=== PATIENT | male | born 1940 | race Caucasian/White ===

== ENCOUNTER 2017-10-21 15:45 | Outpatient (CLI) | payer MEDICARE, OTHER | END 2017-10-21 15:46 | disposition home or self-care (01) | LOC: SC 15:45 | PROVIDERS: ATTEND Nurse Practitioner Family | DX: G47.33 Obstructive sleep apnea (adult) (pediatric) (principal); I48.91 Unspecified atrial fibrillation; Z91.19 Patient's noncompliance with other medical treatment and regimen | CPT/HCPCS: 99214; G0463; 99212 ==

== ENCOUNTER 2017-12-23 14:57 | Outpatient (CLI) | payer MEDICARE, OTHER | END 2017-12-23 14:58 | disposition home or self-care (01) | LOC: SC 14:57 | PROVIDERS: ATTEND Nurse Practitioner Family | DX: G47.33 Obstructive sleep apnea (adult) (pediatric) (principal); R53.83 Other fatigue | CPT/HCPCS: 99214; G0463; 99212 ==

== ENCOUNTER 2018-09-22 08:44 | Outpatient (CLI) | payer MEDICARE, OTHER | END 2018-09-22 08:45 | disposition home or self-care (01) | LOC: SC 08:44 | PROVIDERS: ATTEND Nurse Practitioner Family | DX: G47.33 Obstructive sleep apnea (adult) (pediatric) (principal) | CPT/HCPCS: 99214; G0463; 99212 ==

== ENCOUNTER 2019-01-10 13:04 | Outpatient (CLI) | payer MEDICARE, OTHER ==
[2019-01-10 14:24] VITALS: BP 140/60
--- NOTE | 2019-01-10 14:24 | SLEEP CARE CONSULTATION ---
Information from patient questionnaire entered by Jesi Jordan. I have reviewed and concur with the information entered by Jesi Jordan. This document represents the service I personally performed and the decisions made by me, Katie Neri, RN, MSN, [employer]. History of Present Illness Previous diagnosis: Moderate, Obstructive Sleep Apnea-Hypopnea Syndrome AHI: 22.4 Reason for CPAP/BiPAP follow up: other (pressure change & two month follow up) Equipment type: CPAP Equipment obtained from: [employer] (He has been having difficulty getting supplies.) Mask style: Full face Mask brand: Respironics Backup mask available: No Last cushion change: never since set up Prior sleep studies: Yes Year and Where: 2014 [facility] additional information: Changes since last seen is aortic valve replacement November 29, 2018. He is to go to cardiac rehab but has not started yet. He has noted improved energy overall since but still afternoon fatigue CPAP Compliance Data - Data Reviewed with Patient Average duration of nightly device use: 7h 28m Compliance rate %: 91.7 Current pressure setting (cmH2O): 10-11 Heated hose settin Average residual AHI: 3.7 Average large leak: 41 minutes Subjective Missed days of use due to: reports: other (runny nose after used the CPAP after cleaning with clorox solution. ) Patient concerns: reports: air blowing in eyes (most nights and waking him up about 2-3 times a night), mask leak noise, dry mouth, nose, throat (about half the time ). denies: aerophagia, mask discomfort, condensation in mask/hose, nasal congestion, epistaxis Observed to snore while using device: No On therapy, patient: reports: sleeping better, awakening more refreshed, being more awake and alert during the day, more rested overall (but still mid afternoon fatigue with regular wake time ) Initial [place] Sleepiness Scale score: 12 Current [place] Sleepiness Scale score: 12 Allergies and Home Medications Known drug allergies: No Home medication list reviewed: Yes Allergy and home medication list: Medication Name (generic/name brand) Strength & Dosage Losartan Potassium 100mg tab one daily Finasteride 5mg tab one daily Xarelto 20mg tab one daily Doxazosin Mesylate 1mg tab one twice daily Review of Systems Cardiovascular: reports: high blood pressure, palpitations, irregular heart rate or pulse Gastrointestinal: reports: diarrhea (occasional ). denies: heartburn (resolved with aortic valve replacemnt ) Urinary: reports: incontinence, urgency Ear/Nose/Throat: reports: dry mouth/throat, wisdom teeth removed Musculoskeletal: reports: joint pain Physical Exam Blood Pressure: 140/60 Cuff size: long Heart Rate: 69 O2 Saturation: 98 Weight (kg): 95.527 kg Impression and Plan 1. Obstructive Sleep Apnea-Hypopnea Syndrome, moderate apnea and severe supine, with good treatment compliance and good apnea control. The new pressure has resolved residual AHI to normal. On CPAP therapy, the patient has better sleep quality and is more rested overall but has mid afternoon fatigue. In regard to his fatigue, I discussed possibility of needing more sleep vs needing cardiac rehab and to follow up with PCP if persists. For his supply concerns, I will have him discuss transfer options with my unit coordinator and I will make a DWO prescription to his choice. Once transferred to a new DME, he is to update all supplies. His mask leaks are probably due to wear down of mask. A list of supply replacement given for reference. For his oral dryness, he is advised to increase humidity as shown on sample device and to add heated hose only if condensation. He was also advised not to use bleach any more to clean equipment. Instead he is to use a liquid dish soap or baby shampoo and rinse well. A vinegar solution can be used if needed for reservoir to clear mineral deposits but again, it is to be rinsed well. Since his apnea is worse supine, he is to avoid supine sleep if unable to use CPAP. Patient's apnea severity and rationale for treatment to reduce apnea, improve sleep quality and reduce cardiovascular and cerebrovascular events was reviewed. I also reviewed the benefit of consistent device use of CPAP for hypertension, cardiac disease, arrhythmia. * Continue autoCPAP pressure at 10-11 cmH2O * Implement new methods for cleaning equipment and regularly. * Transfer to new DME * Update all supplies * Notify me if snoring with mask or feeling that the pressure is too much or too little * Attempt to lose weight * Follow up with PCP if persistent fatigue. * Return for follow up in 6 months, or sooner if concerns arise I spent 100% of this 32 minute visit face to face with the patient with greater than 50% of this was spent time counseling the patient and coordination of care.
== END 2019-01-10 13:05 | disposition home or self-care (01) ==
LOC: SC 13:04
PROVIDERS: ATTEND Nurse Practitioner Family
DX: G47.33 Obstructive sleep apnea (adult) (pediatric) (principal)
CPT/HCPCS: 99214; G0463; 99212

== ENCOUNTER 2020-01-26 11:33 | Outpatient (CLI) | payer MEDICARE, OTHER ==
--- NOTE | 2020-01-26 13:27 | SLEEP CARE CONSULTATION ---
Information from patient questionnaire entered by Any Simmons. I have reviewed and concur with the information entered by Any Simmons. This document represents the service I personally performed and the decisions made by , Sana Quinones ARNP. History of Present Illness Service Date and Time: 01/26/2020 1133 Previous diagnosis: Moderate, Obstructive Sleep Apnea-Hypopnea Syndrome AHI: 22.4 (in 2014) Reason for follow up: annual (last seen 2019) Equipment type: CPAP Equipment obtained from: [employer] (has not gotten supplies for a over year) Mask style: Full face Backup mask available: No (will need to keep mask at next change out) Last cushion change: over a year [facility]: Yes [facility] Pol[facility]omn[facility] HPI additional information: LEONOR DUKE was diagnosed to have moderate, AHI 22.4, obstructive sleep apnea- hypopnea syndrome and returned today for CPAP therapy annual follow-up. He missed the follow up letters and it has been over a year since last follow up visit. He was using [employer] for supplies but has not been able to get supplies and then just stopped trying to get them. Sleep Study - Results [facility]: Yes [facility] Compliance Data - Data Reviewed with Patient Average duration of nightly device use: 7.1 Compliance rate %: 77.2 (180 days ending 04/03/19) Current pressure setting (cmH2O): 10-11 Humidity settin Average residual AHI: 3.2 Average large leak: 19 min 18 sec Subjective Patient concerns: reports: mask leak noise (only if mask not adjusted right), dry mouth, nose, throat (dry mouth, little bit). denies: aerophagia, mask disco mfort, air blowing in eyes, condensation in mask/hose, nasal congestion, epistaxis, other Observed to snore while using device: No Current pressure setting perceived as: comfortable On therapy, patient: reports: sleeping better, awakening more refreshed, being more awake and alert during the day, more rested overall. denies: drowsiness while driving Initial [place] Sleepiness Scale score: 12 (in 2014) Current [place] Sleepiness Scale score: 11 Allergies and Home Medications Drug allergies reviewed: Yes (NKDA) Home medication list reviewed: Yes (amlodipine 1/2 dose, added medication for enlarged prostate) Review of Systems Review of systems same as previous: No (Aortic valve replacement November 29 2018) Cardiovascular: reports: high blood pressure, irregular heart rate or pulse (atrial fibrillation) Urinary: reports: other (enlarged prostate) Neurological: denies: headaches Ear/Nose/Throat: reports: nasal congestion, dry mouth/throat. denies: sinus problems, nose bleeds Physical Exam Heart Rate: 74 O2 Saturation: 99 Height: 5 ft 11 in Weight: 207 lb Body Mass Index: 28.8 BMI Classification: Overweight Impression and Plan 1. Obstructive Sleep Apnea-Hypopnea Syndrome, moderate, with good treatment compliance and good apnea control from numbers before April 2019. On CPAP therapy, there is improved sleep quality and feels more rested overall. Our information only goes back to April 2019, needs updated compliance information. Patient states his card was not completely inserted so it may not have all the information downloaded on it. He was instructed to put back in machine so information can be downloaded to card and bring it back into office later today or tomorrow so we may verify his compliance. He has not issues except need for new supplies. His headgear has broken and he has not had new cushions in over a year. We will transfer his DME since he was not happy with [facility]'s service. Patient's apnea severity and rationale for treatment to reduce apnea, improve sleep quality and reduce cardiovascular and cerebrovascular events was reviewed. I also reviewed the benefit of consistent device use of CPAP for hypertension and arrhythmia. Continue auto CPAP pressure at 10-11 cm H2O. Bring in reloaded compliance information chip for verification of information. Notify me if snoring with the mask or feeling that the pressure is too much or too little. Attempt to lose weight. Transfer DME and update supplies Return for follow-up in 1-2 months if unable to obtain compliance information sooner or in 1 year for annual if able to obtain information. He may return anytime if concerns arise. Visit Type: In Office Time Spent with Patient (minutes): 22 Provider Statement: I spent 100% of the Face to Face Visit with the patient with greater than 50% spent counseling the patient and coordination of care.
== END 2020-01-26 11:34 | disposition home or self-care (01) ==
LOC: SC 11:33
PROVIDERS: ATTEND Nurse Practitioner Family
DX: G47.33 Obstructive sleep apnea (adult) (pediatric) (principal); E66.3 Overweight; Z68.28 Body mass index [BMI] 28.0-28.9, adult
CPT/HCPCS: 99213; G0463; 99212

== ENCOUNTER 2021-01-11 09:03 | Outpatient (CLI) | payer MEDICARE, OTHER ==
--- NOTE | 2021-01-11 09:33 | SLEEP CARE CONSULTATION ---
Information from patient questionnaire entered by Any Simmons. I have reviewed and concur with the information entered by Any Simmons. This document represents the service I personally performed and the decisions made by , Sana Quinones ARNP. History of Present Illness Service Date and Time: 01/11/2021 0903 Previous diagnosis: Moderate, Obstructive Sleep Apnea-Hypopnea Syndrome AHI: 22.4 (in 2014) Reason for follow up: first compliance after device update Equipment type: CPAP Equipment obtained from: [employer] (getting supplies as needed) Mask style: Full face Backup mask available: Yes (other) [facility]: Yes [facility] additional information: LEONOR DUKE was diagnosed to have moderate, AHI 22.4, obstructive sleep apnea- hypopnea syndrome and returned today for CPAP therapy first compliance after updating device follow-up. Sleep Study - Results Prior sleep studies: Yes Year and Where: 2014 [email or web address] CPAP Compliance Data - Data Reviewed with Patient Average duration of nightly device use: 7 hr 27 min Compliance rate %: 95 (180 days) Current pressure setting (cmH2O): 10-11 Humidity settin Heated hose settin Average residual AHI: 3.2 Average large leak: 2 min 53 sec Subjective Patient concerns: reports: aerophagia (sometimes), mask discomfort, air blowing in eyes, mask leak noise, dry mouth, nose, throat (not new, not very much but). denies: condensation in mask/hose, nasal congestion, epistaxis Observed to snore while using device: No Current pressure setting perceived as: too low On therapy, patient: reports: sleeping better, awakening more refreshed, being more awake and alert during the day, more rested overall. denies: drowsiness while driving Initial [place] Sleepiness Scale score: 12 (in 2015) Current [place] Sleepiness Scale score: 16 Allergies and Home Medications Home medication list reviewed: Yes (no changes) Review of Systems Review of systems same as previous: Yes (no changes) Physical Exam Heart Rate: 81 O2 Saturation: 96 Height: 5 ft 11 in Weight: 209 lb Body Mass Index: 29.1 BMI Classification: Overweight Impression and Plan 1. Obstructive Sleep Apnea-Hypopnea Syndrome, moderate, with good treatment compliance and good apnea control. On CPAP therapy, the patient has better sleep quality and is more rested overall. Patient has been getting some air leaking on face and mask leak noises with current full face mask. He would like to try a different style of mask. I will write for a mask refitting. He states he gets occasional morning bloating feeling but it is not bad. He feels the pressure is too low. The patients pressure will be changed to autoCPAP 10-12 cmH20 to reduce air hunger. Patient advised to contact me if pressure change is uncomfortable so that it can be adjusted. Goals for apnea control discussed. Patient's apnea severity and rationale for treatment to reduce apnea, improve sleep quality and reduce cardiovascular and cerebrovascular events was reviewed. I also reviewed the benefit of consistent device use of CPAP for hypertension and arrhythmia. He was encouraged to try to lose weight. * Change auto CPAP pressure to 10-12 cmH2O * Notify me if snoring with mask or feeling that the pressure is too much or too little * Attempt to lose weight * Call this office if any problems using CPAP * Return for follow up in 1 year, or sooner if concerns arise Counseling Topics: Weight loss health impact Time Spent with Patient (minutes): 21
== END 2021-01-11 09:04 | disposition home or self-care (01) ==
LOC: SC 09:03
PROVIDERS: ATTEND Nurse Practitioner Family
DX: G47.33 Obstructive sleep apnea (adult) (pediatric) (principal)
CPT/HCPCS: 99213; G0463; 99212

== ENCOUNTER 2022-11-21 01:08 | Emergency (ER) | payer MEDICARE, OTHER ==
--- OUTSIDE RECORDS SUMMARY | 2022-11-21 01:22 | EXTERNAL MEDICAL SUMMARY RPT | Continuity of Care Document ---
Author Name Unknown Address [address] [place] [address] Phone Organization [place] Address [address] [place] [id number] Phone Problems date description facility 2022-10-09 13:45 Essential (primary) [facility] 2022-10-09 13:50 Essential (primary) [facility] 2022-11-18 12:11 Presence of prosthetic heart [facility] 2022-11-18 15:57 Presence of prosthetic heart [facility] Results/Labs test date author facility value unit interpretation Result panel 1 (unknown) (no date) (unknown) (unknown) > 60 ml/min (unknown ) (unknown) (no date) (unknown) (unknown) > 60 ml/min (unknown ) (unknown) (no date) (unknown) (unknown) 0.82 mg/dl (unknown ) (unknown) (no date) (unknown) (unknown) 100 mg/dl (unknown ) (unknown) (no date) (unknown) (unknown) 100 mg/dl (unknown ) (unknown) (no date) (unknown) (unknown) 100 mmol/l (unknown ) (unknown) (no date) (unknown) (unknown) 138 mmol/l (unknown ) (unknown) (no date) (unknown) (unknown) 14 mg/dl (unknown ) (unknown) (no date) (unknown) (unknown) 17.1 (units unknown) (unknown) (unknown) (no date) (unknown) (unknown) 3.6 mmol/l (unknown ) (unknown) (no date) (unknown) (unknown) 32 mmol/l (unknown ) (unknown) (no date) (unknown) (unknown) 8.8 mg/dl (unknown ) Result panel 2 (unknown) (no date) (unknown) (unknown) 0 /ul (unknown ) (unknown) (no date) (unknown) (unknown) 0.8 % (unknown ) (unknown) (no date) (unknown) (unknown) 13.6 % (unknown ) (unknown) (no date) (unknown) (unknown) 1300 /ul (unknown ) (unknown) (no date) (unknown) (unknown) 14.3 g/dl (unknown ) (unknown) (no date) (unknown) (unknown) 200 /ul (unknown ) (unknown) (no date) (unknown) (unknown) 201 x10 3/ul (unknow n) (unknown) (no date) (unknown) (unknown) 21.6 % (unknown ) (unknown) (no date) (unknown) (unknown) 3.7 % (unknown ) (unknown) (no date) (unknown) (unknown) 30.3 pg (unknown ) (unknown) (no date) (unknown) (unknown) 34.4 % (unknown ) (unknown) (no date) (unknown) (unknown) 3800 /ul (unknown ) (unknown) (no date) (unknown) (unknown) 4.73 x10 6/ul (unknow n) (unknown) (no date) (unknown) (unknown) 41.7 % (unknown ) (unknown) (no date) (unknown) (unknown) 5.9 x10 3/ul (unknow n) (unknown) (no date) (unknown) (unknown) 500 /ul (unknown ) (unknown) (no date) (unknown) (unknown) 64.7 % (unknown ) (unknown) (no date) (unknown) (unknown) 88.3 fl (unknown ) (unknown) (no date) (unknown) (unknown) 9.2 % (unknown ) Result panel 3 (unknown) (no date) (unknown) (unknown) (no value) (units unknown) (unknown) (unknown) (no date) (unknown) (unknown) +---------+ 29 9-1300 +--------- (units unknown) (unknown) (unknown) (no date) (unknown) (unknown) +---------+ Ho spital +--------- (units unknown) (unknown) (unknown) (no date) (unknown) (unknown) + ------- (units unknown) (unknown) (unknown) (no date) (unknown) (unknown) [address] (units unknown) (unknown) (unknown) (no date) (unknown) (unknown) 11/18/22 (units unknown) (unknown) (unknown) (no date) (unknown) (unknown) 1) Normal left ventricular size, wall motion, and systolic function (EF 55 (units unknown) (unknown) (unknown) (no date) (unknown) (unknown) [address] [place] (un its unknown) (unknown) (unknown) (no date) (unknown) (unknown) 2) Mildly enla rged right ventricle with low normal function. (units unknown) (unknown) (unknown) (no date) (unknown) (unknown) 3) There is a bioprosthetic aortic valve that is well-seated and opens well. (units unknown) (unknown) (unknown) (no date) (unknown) (unknown) 4) There is mi ld to moderate tricuspid regurgitation. (units unknown) (unknown) (unknown) (no date) (unknown) (unknown) 5) The right ventricular systolic pressure is estimated to be at least 37 mmHg (units unknown) (unknown) (unknown) (no date) (unknown) (unknown) 6) Compared to the Echo done 01/11/2020, no significant change. (units unknown) (unknown) (unknown) (no date) (unknown) (unknown) 60%). (units unknown) (unknown) (unknown) (no date) (unknown) (unknown) : : [address] : : (units unknown) (unknown) (unknown) (no date) (unknown) (unknown) : : [id number] : : (units unknown) (unknown) (unknown) (no date) (unknown) (unknown) : : TOMMY Castro : : (units unknown) (unknown) (unknown) (no date) (unknown) (unknown) : : Phone: [phone] : : (units unknown) (unknown) (unknown) (no date) (unknown) (unknown) : Gender: Male BSA: 2.2 m2 : (units unknown) (unknown) (unknown) (no date) (unknown) (unknown) :JOCY Perfor med By: Ewa Cr : (units unknown) (unknown) (unknown) (no date) (unknown) (unknown) :: [birth year] Age: 82 yrs BP: 153/87 mmHg: (units unknown) (unknown) (unknown) (no date) (unknown) (unknown) :[facility] ReadingLocation: Weight: 210 lb : (units unknown) (unknown) (unknown) (no date) (unknown) (unknown) :Name: LEONOR SAHU Study Date: 11/18/2022 Height: 72 in : (units unknown) (unknown) (unknown) (no date) (unknown) (unknown) :Ordering Phys ician: KENDALL, : (units unknown) (unknown) (unknown) (no date) (unknown) (unknown) :Reason For St udy: S/P TAVR : (units unknown) (unknown) (unknown) (no date) (unknown) (unknown) :Referring: JOCY ARRINGTON : (units unknown) (unknown) (unknown) (no date) (unknown) (unknown) AI P1/2t: 826.8 msec (units unknown) (unknown) (unknown) (no date) (unknown) (unknown) AI dec slope: 157.7 cm/sec2 (units unknown) (unknown) (unknown) (no date) (unknown) (unknown) sev ratio: 0.42 ( units unknown) (unknown) (unknown) (no date) (unknown) (unknown) MADELINE indexed to BSA (cm2/m2): 0.73 (units unknown) (unknown) (unknown) (no date) (unknown) (unknown) Accession Numb er: [id number] (units unknown) (unknown) (unknown) (no date) (unknown) (unknown) Age/Sex: 82 / M Date of Service: (units unknown) (unknown) (unknown) (no date) (unknown) (unknown) TOMMY Castro [id number] (units unknown) (unknown) (unknown) (no date) (unknown) (unknown) Ao V2 VTI: 35. 2 cm MADELINE(V,D): 1.4 cm2 (units unknown) (unknown) (unknown) (no date) (unknown) (unknown) Ao V2 max: 191 .8 cm/sec LVOT Max Sai: 71.0 cm/sec (units unknown) (unknown) (unknown) (no date) (unknown) (unknown) Ao V2 mean: 13 5.6 cm/sec LV V1 max P.0 mmHg (units unknown) (unknown) (unknown) (no date) (unknown) (unknown) Ao max P. 8 mmHg LV V1 VTI: 14.8 cm (units unknown) (unknown) (unknown) (no date) (unknown) (unknown) Ao mean P. 2 mmHg MADELINE(I,D): 1.6 cm2 (units unknown) (unknown) (unknown) (no date) (unknown) (unknown) Aortic Valve: There is a bioprosthetic aortic valve. There is mild (units unknown) (unknown) (unknown) (no date) (unknown) (unknown) Atria: The lef t atrium is moderately dilated. The right atrium is moderately (units unknown) (unknown) (unknown) (no date) (unknown) (unknown) Comparison is made with the echocardiogram of 01/11/2020. The patient was in (units unknown) (unknown) (unknown) (no date) (unknown) (unknown) : 8 Acct:[id number] (units unknown) (unknown) (unknown) (no date) (unknown) (unknown) Doppler Measur ements + Calculations (units unknown) (unknown) (unknown) (no date) (unknown) (unknown) E/E' lat: 8.5 (units unknown) (unknown) (unknown) (no date) (unknown) (unknown) E/E' med: 8.9 PA mean P.2 mmHg (units unknown) (unknown) (unknown) (no date) (unknown) (unknown) E/e' average: 8.7 (u nits unknown) (unknown) (unknown) (no date) (unknown) (unknown) EPSS: 0.67 cm (units unknown) (unknown) (unknown) (no date) (unknown) (unknown) Echocardiogram Repor t (units unknown) (unknown) (unknown) (no date) (unknown) (unknown) Echocardiograp hy Report (units unknown) (unknown) (unknown) (no date) (unknown) (unknown) (units unknown) (unknown) (unknown) (no date) (unknown) (unknown) FS: 39.1 % Ao Arch Diam (Prox Trans): 3.1 cm (units unknown) (unknown) (unknown) (no date) (unknown) (unknown) Great Vessels: The aortic root is not well visualized but is probably normal (units unknown) (unknown) (unknown) (no date) (unknown) (unknown) IVSd: 1.1 cm (units unknown) (unknown) (unknown) (no date) (unknown) (unknown) Interpretation Summary (units unknown) (unknown) (unknown) (no date) (unknown) (unknown) [facility] (uni ts unknown) (unknown) (unknown) (no date) (unknown) (unknown) [place] (units unknown) (unknown) (unknown) (no date) (unknown) (unknown) LA A2 area: 21 .5 cm2 RA long axis: 7.5 cm (units unknown) (unknown) (unknown) (no date) (unknown) (unknown) LA A4 area: 29 .2 cm2 RA area: 29.1 cm2 (units unknown) (unknown) (unknown) (no date) (unknown) (unknown) LA length (vol ): 6.9 cm RA vol: 95.8 ml (units unknown) (unknown) (unknown) (no date) (unknown) (unknown) LA vol index: 35.3 ml/m2 IVC diam: 2.1 cm (units unknown) (unknown) (unknown) (no date) (unknown) (unknown) LA vol: 76.7 m l RA : 44.1 ml/m2 (units unknown) (unknown) (unknown) (no date) (unknown) (unknown) LV barahona. diame ter/BSA (cm/m2): 2.2 (units unknown) (unknown) (unknown) (no date) (unknown) (unknown) LV sys. diamet er/BSA (cm/m2): 1.3 (units unknown) (unknown) (unknown) (no date) (unknown) (unknown) LVIDd: 4.8 cm LVOT diam: 2.2 cm (units unknown) (unknown) (unknown) (no date) (unknown) (unknown) LVIDs: 2.9 cm asc Aorta Diam: 3.9 cm (units unknown) (unknown) (unknown) (no date) (unknown) (unknown) LVPWd: 0.96 cm (unit s unknown) (unknown) (unknown) (no date) (unknown) (unknown) Lat Peak E' Ve l: 11.2 cm/sec PA pr(Accel): 36.2 mmHg (units unknown) (unknown) (unknown) (no date) (unknown) (unknown) Left Ventricle : The left ventricle is normal in size and wall thickness. The (units unknown) (unknown) (unknown) (no date) (unknown) (unknown) Loc: ECHO (units unknown) (unknown) (unknown) (no date) (unknown) (unknown) MMode/2D Measu rements + Calculations (units unknown) (unknown) (unknown) (no date) (unknown) (unknown) MV A max sai: 0.98 cm/sec TR max P.6 mmHg (units unknown) (unknown) (unknown) (no date) (unknown) (unknown) MV E max sai: 95.0 cm/sec TR max sai: 267.6 cm/sec (units unknown) (unknown) (unknown) (no date) (unknown) (unknown) MV E/A: 97.3 P A V2 max: 105.0 cm/sec (units unknown) (unknown) (unknown) (no date) (unknown) (unknown) MV dec time: 0.24 se c (units unknown) (unknown) (unknown) (no date) (unknown) (unknown) Med Peak E' Ve l: 10.6 cm/sec PA V2 mean: 68.0 cm/sec (units unknown) (unknown) (unknown) (no date) (unknown) (unknown) Mitral Valve: The mitral valve leaflets appear mildly thickened, but open (units unknown) (unknown) (unknown) (no date) (unknown) (unknown) Ordering Provi selin: Jocy Novak MD (units unknown) (unknown) (unknown) (no date) (unknown) (unknown) Patient: Leonor Turner MR#: [id number] (units unknown) (unknown) (unknown) (no date) (unknown) (unknown) Pericardium/ P leura There is no pericardial effusion. There is no pleural (units unknown) (unknown) (unknown) (no date) (unknown) (unknown) Procedure: A two-dimensional transthoracic echocardiogram with color flow (units unknown) (unknown) (unknown) (no date) (unknown) (unknown) Procedure: EC echo doppler complete (units unknown) (unknown) (unknown) (no date) (unknown) (unknown) Pulmonic Valve : The pulmonic valve is not well seen, but is grossly normal. (units unknown) (unknown) (unknown) (no date) (unknown) (unknown) RVD1 (basal): 4.6 cm (units unknown) (unknown) (unknown) (no date) (unknown) (unknown) RVD2 (mid): 3.3 cm ( units unknown) (unknown) (unknown) (no date) (unknown) (unknown) Reading Physician:03:04 PM (units unknown) (unknown) (unknown) (no date) (unknown) (unknown) Right Ventricl e: The right ventricle is mildly dilated. Right ventricular (units unknown) (unknown) (unknown) (no date) (unknown) (unknown) SV(LVOT): 56.0 ml (u nits unknown) (unknown) (unknown) (no date) (unknown) (unknown) Signed (units unknown) (unknown) (unknown) (no date) (unknown) (unknown) TAPSE: 2.2 cm (units unknown) (unknown) (unknown) (no date) (unknown) (unknown) The peak aorti c velocity is 1.9 m/sec. The aortic valve mean gradient is 8 (units unknown) (unknown) (unknown) (no date) (unknown) (unknown) There is mild pulmonic regurgitation. (units unknown) (unknown) (unknown) (no date) (unknown) (unknown) There is mildred l prosthetic aortic valve function (mean gradient 8mmHg).. There (units unknown) (unknown) (unknown) (no date) (unknown) (unknown) Tricuspid Valv e: The tricuspid valve leaflets are thin and pliable. There is (units unknown) (unknown) (unknown) (no date) (unknown) (unknown) (units unknown) (unknown) (unknown) (no date) (unknown) (unknown) and Doppler wa s performed. The study quality was technically adequate. (units unknown) (unknown) (unknown) (no date) (unknown) (unknown) atrial pressur e of 8 mm Hg. (units unknown) (unknown) (unknown) (no date) (unknown) (unknown) based on an es timated right atrial pressure of 8 mm Hg. (units unknown) (unknown) (unknown) (no date) (unknown) (unknown) dilated (diame ter is greater than 2.1 cm) yet it collapses greater than 50% (units unknown) (unknown) (unknown) (no date) (unknown) (unknown) dilated. There is no Doppler evidence for an interatrial shunt. (units unknown) (unknown) (unknown) (no date) (unknown) (unknown) effusion. (units unknown) (unknown) (unknown) (no date) (unknown) (unknown) ejection fract ion is estimated to be 55-60%. Left ventricular systolic (units unknown) (unknown) (unknown) (no date) (unknown) (unknown) function appea rs normal without focal wall motion abnormalities. Diastolic (units unknown) (unknown) (unknown) (no date) (unknown) (unknown) is mild periva lvular regurgitation around the prosthetic aortic valve. (units unknown) (unknown) (unknown) (no date) (unknown) (unknown) mild to modera te tricuspid regurgitation. The right ventricular systolic (units unknown) (unknown) (unknown) (no date) (unknown) (unknown) mmHg. (units unknown) (unknown) (unknown) (no date) (unknown) (unknown) parameters sug gest a relaxation abnormality of the left ventricle, consistent (units unknown) (unknown) (unknown) (no date) (unknown) (unknown) perivalvular regurgitation around the prosthetic aortic valve. Multiple jets. (units unknown) (unknown) (unknown) (no date) (unknown) (unknown) pressure is es timated to be at least 37 mmHg based on an estimated right (units unknown) (unknown) (unknown) (no date) (unknown) (unknown) regurgitation. (unit s unknown) (unknown) (unknown) (no date) (unknown) (unknown) sinus rhythm w ith heart rates between 59-82 bpm during the exam. (units unknown) (unknown) (unknown) (no date) (unknown) (unknown) size. The asce nding aorta is at the upper limits of normal in size. The IVC is (units unknown) (unknown) (unknown) (no date) (unknown) (unknown) systolic funct ion is at the lower limits of normal. (units unknown) (unknown) (unknown) (no date) (unknown) (unknown) well. There is mild mitral annular calcification. There is mild mitral (units unknown) (unknown) (unknown) (no date) (unknown) (unknown) with a sniff. This suggests a right atrial pressure of 8 mm Hg. (units unknown) (unknown) (unknown) (no date) (unknown) (unknown) with probable normal filling pressures. (units unknown) (unknown)
[2022-11-21 01:24] VITALS: BP 174/94
--- NOTE | 2022-11-21 01:31 | ED Physician Documentation ---
PD HPI MALE - Stated complaint Stated Complaint: MALE - Chief complaint Chief Complaint: Abd Pain - History obtained from History obtained from: Patient - Additional information Additional information: HPI from patient. Since earlier tonight, patient has had inability to urinate despite urge to do so, associated with increasing suprapubic distention and discomfort. He denies ever having urinary tension in the past. He has not been experiencing any dysuria such as burning, nor has he been having urinary frequency. He has noted gradually progressive difficulty and starting urination. Review of Systems Constitutional: denies: Fever : reports: Unable to Void PD PAST MEDICAL HISTORY - Past Medical History Past Medical History: No - Present Medications Home Medications: Ambulatory Orders Medication Instructions Recorded Confirmed Tamsulosin [Flomax] 0.4 mg PO DAILY #14 cap 11/21/22 - Allergies Allergies/Adverse Reactions: Allergies Allergy/AdvReac Type Severity Reaction Status Date / Time No Known Drug Allergies Allergy Verified 11/21/22 01:15 PD ED PE NORMAL - Vitals Vital signs reviewed: Yes - General General: Alert and oriented X 3, Well developed/nourished, Other (appears to be in obvious painful discomfort) - Abdomen Abdomen: Soft, Non distended, Other (suprapubic fullness and TTP) - Back Back: No CVA TTP Results - Vitals Vitals: Vital Signs - 24 hr 11/21/22 01:14 Temperature 35.1 C L Heart Rate 87 Respiratory 16 Rate Blood Pressure 174/94 H O2 Saturation 97 Oxygen O2 Source Room air PD Medical Decision Making - ED course Complexity details: considered differential, d/w patient ED course: ED RN placed a 16 Greek Aden catheter without difficulty. Over 1300 cc of clear yellow urine output associated with complete resolution of patient's symptoms. On reevaluation, he is in no distress and reports resolution of his symptoms. I discussed with him that the typical approach is to keep the catheter in place until follow-up, but patient insists on having the catheter removed at this time. He understands that there is a risk that he will go back into urinary retention which would likely require a repeat visit to the emergency department. He is not on Flomax and thus he is given a dose of 0.4 mg of p.o. Flomax, and I provided a prescription for 2 weeks of this medication, electronically prescribed to his pharmacy of choice. Departure - Departure Disposition: Home, Self Care Clinical Impression: Urinary retention Condition: Good Instructions: ED Retention Urinary Male Prescriptions: Tamsulosin [Flomax] 0.4 mg PO DAILY #14 cap Comments: You are given a dose of tamsulosin in the emergency department and I have electronically submitted a prescription for this medication to the [facility] pharmacy in [place]. Tamsulosin is a medication that can help with enlarged prostate (which is by far the most common cause of urinary retention in a male of your age), and, in turn, decrease the chances of going back into urinary retention. I recommend that you contact your primary care provider to arrange for next available appointment for reevaluation and consideration of referral to a urologist. Discharge Date/Time: 11/21/22 02:06
[2022-11-21] MEDS ORDERED: TAMSULOSIN 0.4 MG CAPSULE PO STA (01:44)
== END 2022-11-21 02:06 | disposition home or self-care (01) ==
LOC: ED 01:08
DX: R33.9 Retention of urine, unspecified (principal)
CPT/HCPCS: 99282; 99284; A9270

== ENCOUNTER 2022-12-04 08:00 | Outpatient (CLI) | payer MEDICARE, OTHER ==
[2022-12-04 10:15] LABS: BILIRUBIN,URINE NEGATIVE (NEGATIVE); GLUCOSE, URINE (UA) NEGATIVE (NEGATIVE); KETONES,URINE (UA) NEGATIVE (NEGATIVE); LEUKOCYTE ESTERASE, URINE NEGATIVE (NEGATIVE); NITRITE,URINE NEGATIVE (NEGATIVE); OCCULT BLOOD,URINE TRACE-INTA (NEGATIVE); PROTEIN,URINE TRACE mg/dL (NEGATIVE); UROBILINOGEN,URINE 1 (NORMAL) E.U./dL (NORMAL)
[2022-12-04 10:16] LABS: CLARITY,URINE CLEAR (CLEAR)
[2022-12-04 10:31] LABS: BACTERIA,URINE Few /HPF (None Seen); RBC,URINE 0-5 /HPF (0-5); SQUAMOUS EPITHELIAL CELL,UR NONE SEEN (<= Few); WBC CLUMPS,URINE PRESENT
== END 2022-12-04 23:59 | disposition home or self-care (01) ==
LOC: LAB 08:00
PROVIDERS: ATTEND Urology
DX: R39.11 Hesitancy of micturition (principal)
CPT/HCPCS: 81001; 87086

== ENCOUNTER 2023-10-13 14:40 | Outpatient (CLI) | payer MEDICARE, OTHER ==
--- NOTE | 2023-10-13 15:13 | Sleep Patient Instructions ---
Sleep Center Visit Summary - Patient Visit Information Reason for Visit: Annual follow-up - Patient Instructions Additional Instructions: You will continue with CPAP therapy with pressure set at 10-12 cmH2O. A supply prescription will be updated with your DME. We encourage you to continue to try to lose weight. Please follow up with the sleep care office in 1 year. - Clinic Information Contact: [facility] [address] [place] [address] [email or web address] T: [phone]
--- NOTE | 2023-10-13 15:16 | SLEEP CARE CONSULTATION ---
Information from patient questionnaire entered by Rae Barkley. I have reviewed and concur with the information entered by Rae Barkley. This document represents the service I personally performed and the decisions made by , Sana Quinones ARNP. History of Present Illness Service Date and Time: 10/13/2023 1440 Previous diagnosis: Moderate, Obstructive Sleep Apnea-Hypopnea Syndrome AHI: 22.4 (in 2014) Reason for follow up: annual (LAST SEEN 12/2020) Equipment type: CPAP (ResMed Airsense 11) Equipment obtained from: [employer] (getting supplies as needed) Mask style: Full face Mask brand: Resmed (AirFit [id number]) Backup mask available: Yes Last cushion change: within last 6 months Prior sleep studies: Yes Year and Where: 2014 [email or web address] additional information: LEONOR DUKE was diagnosed to have moderate, AHI 22.4, obstructive sleep apnea- hypopnea syndrome and returned today for CPAP therapy annual follow-up. Sleep Study - Results Prior sleep studies: Yes Year and Where: 2014 [employer] CPAP Compliance Data - Data Reviewed with Patient Average duration of nightly device use: 6 hours 26 minutes Compliance rate %: 81 (160/180 days used) Current pressure setting (cmH2O): 10-12 Average residual AHI: 4.3 Central apnea: 1.9 Obstructive apnea: 0.2 Hypopnea: 1.6 Average large leak: 12.8 L/min Subjective Missed days of use due to: reports: other (unsure why missed) Patient concerns: reports: dry mouth, nose, throat (once in a while). denies: aerophagia, mask discomfort, air blowing in eyes, mask leak noise, condensation in mask/hose, nasal congestion, epistaxis Observed to snore while using device: No Current pressure setting perceived as: comfortable On therapy, patient: reports: awakening more refreshed, more rested overall, drowsiness while driving (some) Initial [place] Sleepiness Scale score: 12 (in 2014) Current [place] Sleepiness Scale score: 10 Allergies and Home Medications Known drug allergies: No Drug allergies reviewed: Yes Home medication list reviewed: Yes (no changes) Allergy and home medication list: Allergies No Known Drug Allergies Allergy Review of Systems Review of systems same as previous: Yes (no changes) Physical Exam Vital signs obtained and entered by: [employer] Blood Pressure: 137/77 Cuff size: regular (left arm) Heart Rate: 86 O2 Saturation: 96 Height: 6 ft Weight: 215 lb 9.6 oz Weight change since last visit: 6 lb gain Body Mass Index: 29.2 BMI Classification: Overweight Impression and Plan 1. Obstructive Sleep Apnea-Hypopnea Syndrome, moderate, with good treatment compliance and good apnea control. On CPAP therapy, the patient has better sleep quality and is more rested overall. Patient has significant improvement of their sleep apnea and is satisfied with current CPAP therapy. Patient denies problems with oral dryness, nasal congestion, epistaxis, skin irritation or aerophagia. Patient's apnea severity and rationale for treatment to reduce apnea, improve sleep quality and reduce cardiovascular and cerebrovascular events was reviewed. I also reviewed the benefit of consistent device use of CPAP for hypertension, arrhythmia. 2. Overweight, unspecified. Currently patients BMI is 29.2. He has gained weight. He wants to start losing weight. I discussed with him trying a Mediterranean diet with regular exercise and he voiced understanding. Obesity increases the risk of apnea, CPAP pressure requirements and overall health risks especially cardiovascular and diabetes. Thus patient is advised to lose weight. * Continue auto CPAP pressure at 10-12 cmH2O * Update supply prescription * Notify me if snoring with mask or feeling that the pressure is too much or too little * Attempt to lose weight * Call this office if any problems using CPAP * Return for follow up in 12 months, or sooner if concerns arise Counseling Topics: Spare mask, Weight loss health impact Prescriptions: Device supplies Follow up with Sleep Care in: 1 year Visit Type: In Office Time Spent with Patient (minutes): 21 Provider Statement: I spent 100% of the Face to Face Visit with the patient with greater than 50% spent counseling the patient and coordination of care.
[2023-10-13 15:20] VITALS: BP 137/77; O2SAT 96
== END 2023-10-13 14:41 | disposition home or self-care (01) ==
LOC: SC 14:40
PROVIDERS: ATTEND Nurse Practitioner Family
DX: G47.33 Obstructive sleep apnea (adult) (pediatric) (principal); E66.3 Overweight; Z68.29 Body mass index [BMI] 29.0-29.9, adult
CPT/HCPCS: 99213

== ENCOUNTER 2024-01-25 11:21 | Outpatient (CLI) | payer MEDICARE, OTHER ==
--- NOTE | 2024-01-25 16:29 | XRAY Report ---
PROCEDURE: Foot 3+V RT (Weight Bearing) INDICATIONS: RIGHT FOOT PAIN TECHNIQUE: 3 views of the foot were acquired. COMPARISON: None. FINDINGS: Bones: No fractures or dislocations. No suspicious bony lesions. Calcaneal screw. Pes planus. Int erphalangeal joint space or with osteophytosis. Pes planus. Soft tissues: No tibiotalar joint effusion. Achilles tendon appears normal. IMPRESSION: Pes planus. Interphalangeal osteoarthritis. Reviewed by: Farooq Nye MD on 01/25/2024 4:28 PM PDT Approved by: Farooq Nye MD on 01/25/2024 4:28 PM PDT Station ID: [id number]
== END 2024-01-25 11:22 | disposition home or self-care (01) ==
LOC: DI 11:21
PROVIDERS: ATTEND Podiatrist
DX: M21.41 Flat foot [pes planus] (acquired), right foot (principal); M19.071 Primary osteoarthritis, right ankle and foot